=== PATIENT | male | born 1965 | race Caucasian/White ===

== ENCOUNTER 2025-06-19 15:11 | Outpatient (CLI) | payer OTHER, SELFPAY ==
--- NOTE | ~2025-06-19 | US_ITS ---
EXAMINATION: US soft tissue chest, 06/19/2025 15:18 CDT HISTORY: Soft tissue mass Comparison: None Technique: Saavedra-scale and color Doppler images were obtained FINDINGS: Correlating with the palpable area within the subcutaneous tissues there is an echogenic solid appearing focus measuring 1.7 x 2.2 x 1 cm without abnormal flow. IMPRESSION: Probable lipoma. If there is pain in this location or there remains clinical concern MRI recommended Reviewed, dictated and finalized at location P.
--- NOTE | ~2025-06-19 | US_ITS ---
EXAMINATION: US soft tissue lower back, 06/19/2025 15:18 CDT HISTORY: Soft tissue mass Comparison: None Technique: Saavedra-scale and color Doppler images were obtained FINDINGS: Correlating with the palpable area within the subcutaneous tissues there is a solid echogenic focus 1.1 x 0.5 x 0.5 cm without abnormal flow. IMPRESSION: Probable lipoma. If there is pain in this location or there remains clinical concern MRI is recommended Reviewed, dictated and finalized at location P.
== END 2025-06-19 15:12 | disposition home or self-care (01) ==
DX: M79.89 Other specified soft tissue disorders (principal); R22.2 Localized swelling, mass and lump, trunk
CPT/HCPCS: 76604; 76705